=== PATIENT | male | born 1975 | race Caucasian/White ===

== ENCOUNTER → 2022-12-15 | Outpatient (CLI) | payer BC ==
--- NOTE | 2022-12-17 13:53 | MR ---
EXAMINATION TYPE: MR shoulder RT wo con DATE OF EXAM: 12/15/2022 COMPARISON: No radiographic correlation available. HISTORY: 47-year-old male M25.511, No prior, right shoulder injury 2 weeks ago, painful to raise over head limited ROM TECHNIQUE: Multiplanar, multisequence imaging of the right shoulder is performed without contrast. FINDINGS: Long head biceps tendon is intact and appropriately situated along the bicipital groove. There is some thickening and heterogeneity of the subscapularis tendon which otherwise remains intact . Moderate degenerative change at the acromioclavicular joint with joint space narrowing, marginal spur ring, subchondral bony irregularity, and reactive subchondral marrow signal change. No significant ma ss effect on the underlying cuff. Mild heterogeneity of both supraspinatus and infraspinous tendons. No focal tear is seen. However, there is focal edema involving the posterior supraspinatus tendon extending from the myotend inous junction and into its lateral muscle belly. No atrophy of the rotator cuff musculature. The glenohumeral joint is intact with physiologic joint fluid. No discrete labral tear given the radiographic technique and no paralabral cyst. No suspicious bone marrow replacement. There is bony irregularity at both greater and lesser tuberosi ties compatible with tendinosis. Some patchy red marrow can be seen in setting of anemia, smoking, an d chronic disease. IMPRESSION: 1. Mild diffuse rotator cuff tendinosis. 2. Focal soft tissue contusion or moderate muscle strain along the posterior supraspinatus. No discre te rotator cuff tear. 2. Moderate AC joint OA but without any significant subacromial impingement.
== END | disposition home or self-care (01) ==
LOC: RADMRIMAIN 10:39
PROVIDERS: ATTEND Orthopaedic Surgery
DX: M19.011 Primary osteoarthritis, right shoulder (principal); M67.813 Other specified disorders of tendon, right shoulder; S46.011A Strain of muscle(s) and tendon(s) of the rotator cuff of right shoulder, initial encounter

== ENCOUNTER → 2023-02-02 | Outpatient (CLI) | payer BC ==
--- NOTE | 2023-02-02 09:02 | CT ---
EXAMINATION TYPE: CT facial bones w con CT DLP: 699.4 mGycm, Automated exposure control for dose reduction was used. DATE OF EXAM: 02/02/2023 8:55 AM COMPARISON: None . CLINICAL INDICATION:Male, 47 years old with history of K11.22, Right ear/salivary gland infection/bob n TECHNIQUE: Multiple unenhanced axial CT images were obtained of the facial bones soft tissue and bone windows. Coronal, axial and sagittal reformatted images were also provided in soft tissue and bone windows and submitted for interpretation. FINDINGS: There is no evidence of fracture, subluxation, dislocation, or significant soft tissue swelling. The orbital contents are unremarkable.The temporal-mandibular joints appear symmetric. There is mild opac ification of the ethmoid air cells. The remainder of the paranasal sinuses are relatively clear. The mastoid air cells are clear. Middle ears are without evidence for joint effusion. External auditory c anals are symmetrical. Couple calcified plaques are seen at the carotid bifurcations. The salivary gl ands are rather unremarkable. The parotid glands submandibular glands and lingual tonsils are unremar kable. No greater than 1.0 cm in short axis lymph nodes. IMPRESSION: No evidence for acute process. The spaces of the neck are relatively symmetric. No evidence of fractu re. No lymphadenopathy. The ureters and temporal bones are without acute process.
== END | disposition home or self-care (01) ==
LOC: RADCTMAIN 08:10
PROVIDERS: ATTEND Otolaryngology
DX: K11.22 Acute recurrent sialoadenitis (principal)
CPT/HCPCS: 70487; Q9967